=== PATIENT | male | born 1955 | race African-American/Black ===

== ENCOUNTER 2020-02-23 15:59 | Emergency (ER) | payer MEDICARE, MEDICAID ==
--- NOTE | 2020-02-23 16:21 | ER Document Report ---
ED General - General Chief Complaint: Shortness Of Breath Stated Complaint: SHORTNESS OF BREATH Time Seen by Provider: 02/23/20 16:21 Primary Care Provider: RITA SILVER [NO LOCAL MD] - Follow up as needed - [facility] Notes: 64-year-old male presents with shortness of breath. Patient states about an hour prior to arrival, he was sitting on the couch when suddenly he became short of breath. He states that he has a history of [place] BENDER D. He tried his inhalers which did not provide relief. He states that this is never happened before. He denies recent illness, fever or chills. He denies chest pain. He does have HIV, reports compliance with his medication and that his counts are good. - Related Data Allergies/Adverse Reactions: blueberries Allergy (Uncoded 09/18/11 09:35) fish Allergy (Uncoded 09/18/11 09:35) Hives Past Medical History - General Information source: Patient - Social History Smoking Status: Unknown if Ever Smoked Family History: Reviewed & Not Pertinent - Past Medical History Cardiac Medical History: Reports: Hx Hypercholesterolemia, Hx Hypertension Pulmonary Medical History: Reports: Hx COPD, Hx Pneumonia - Immunizations Hx Diphtheria, Pertussis, Tetanus Vaccination: Yes Hx Pneumococcal Vaccination: 04/09/11 Review of Systems - Review of Systems Constitutional: denies: Fever EENT: No symptoms reported Cardiovascular: denies: Chest pain Respiratory: Short of breath Gastrointestinal: No symptoms reported Genitourinary: No symptoms reported Male Genitourinary: No symptoms reported Musculoskeletal: No symptoms reported Skin: No symptoms reported Hematologic/Lymphatic: No symptoms reported Neurological/Psychological: No symptoms reported Physical Exam - Vital signs Vitals: Temp 97.8 F 02/23/20 16:00 Interpretation: Tachycardic, Tachypneic - General General appearance: Alert In distress: Mild - HEENT Head: Normocephalic, Atraumatic Extraocular movements intact: Yes Pupils: PERRL - Respiratory Respiratory status: Tachypnea Breath sounds: Decreased air movement, Wheezing - Cardiovascular Rhythm: Tachycardia Heart sounds: Normal auscultation Pulses: Normal: Radial Normal capillary refill: Yes - Abdominal Tenderness: Nontender - Extremities General lower extremity: No: Edema - Neurological Neuro grossly intact: Yes Cognition: Normal Orientation: AAOx4 - Psychological Associated symptoms: Normal affect - Skin Skin Temperature: Warm Course - Re-evaluation Re-evalutation: 64-year-old male with onset of shortness of breath. On exam he does have decreased air movement, there is some wheezing at the upper aspect. Suspecting COPD exacerbation, will start with DuoNeb's, magnesium bolus, and Solu-Medrol. He is notably tachycardic, this could be from his respiratory status as well. Lower concern for infection at this time. 02/23/20 18:15 In to check on patient, he is receiving nebulizer treatments, he states he is feeling somewhat better. 02/23/20 19:38 Into reassess patient, he reports he is feeling much better, he is no longer short of breath. Lung sounds have improved. He does remain fairly tachycardic, have ordered fluids, suspect this is a side effect of the albuterol. However will obtain CTA to r/o PE/ He is on metoprolol, may need to give a dose if no improvement after fluids 02/23/20 22:07 CTA has resulted. Is negative for pulmonary embolism. It does show a 6 mm pu lmonary nodule, patient will need follow-up. Heart rate is now in 120s, which is an improvement from the 140s. We will give his home dose of metoprolol at this time. 02/23/20 23:17 Patient's heart rate has responded to intervention. He reports he is feeling great. I updated him on the pulmonary nodule and need for six-month follow-up. We will prescribe a short course of steroids. He has enough albuterol refill, discussed these with him. Return precautions were given, stable at time of yaniv betts. - Vital Signs Vital signs: Temp Pulse Resp BP Pulse Ox 98.5 F 146 H 17 137/79 H 96 02/24/20 00:00 02/23/20 16:04 02/24/20 00:00 02/24/20 00:00 02/24/20 00:00 - Laboratory Result Diagrams: 02/23/20 16:22 02/23/20 16:22 Laboratory results interpreted by me: 02/23/20 02/23/20 02/23/20 16:22 16:22 20:53 MCV 101 H MCH 36.2 H Sodium 136.1 L Chloride 97 L BUN 29 H Glucose 139 H Total Protein 8.5 H Urine Protein 30 H Urine Ketones TRACE H - EKG Interpretation by Me Additional EKG results interpreted by me: 02/24/20 03:52 EKG is interpreted by me, sinus tachycardia, no ST elevations Discharge - Discharge Clinical Impression: COPD exacerbation Condition: Stable Disposition: HOME, SELF-CARE Additional Instructions: Please begin course of steroids for COPD exacerbation. As discussed, you have a pulmonary nodule that is small, please have a repeat CT scan done in 6 months. Return to the emergency department for any worsening or concerning symptoms. Prescriptions: Prednisone [Deltasone 20 mg Tablet] 2 tab PO DAILY 5 Days #10 tablet Referrals: LOCALMD,NO [NO LOCAL MD] - Follow up as needed
[2020-02-23] MEDS ORDERED: IPRATROPIUM/ALBUTEROL 0.5-2.5 MG/3 ML AMPUL NEB ONE (16:25)
[2020-02-23] MEDS ORDERED: METHYLPREDNISOLONE INJ 125 MG/2 ML SDV IV ONE (16:25)
[2020-02-23 16:45] LABS: ABSOLUTE EOSINOPHILS # (AUTO) 0.1 10^3/uL (0.0-0.6); ABSOLUTE LYMPHOCYTES (AUTO) 1.9 10^3/uL (0.5-4.7); ABSOLUTE MONOCYTES (AUTO) 0.6 10^3/uL (0.1-1.4); ABSOLUTE NEUT (AUTO) 5.6 10^3/uL (1.7-8.2); BASOPHILS % (AUTO) 0.6 % (0-2); EOSINOPHILS % (AUTO) 0.8 % (0-6); HEMATOCRIT 46.9 % (37.9-51.0); HEMOGLOBIN 16.8 g/dL (13.5-17.0); LYMPHOCYTES % (AUTO) 23.3 % (13-45); MEAN CORPUSCULAR HEMOGLOBIN 36.2 pg (27.0-33.4); MEAN CORPUSCULAR HGB CONC 35.8 g/dL (32.0-36.0); MEAN CORPUSCULAR VOLUME 101 fl (80-97); PLATELET COUNT 235 10^3/uL (150-450); RED BLOOD COUNT 4.64 10^6/uL (4.35-5.55); RED CELL DISTRIBUTION WIDTH 12.7 % (11.5-14.0); SEGMENTED NEUTROPHILS % (AUTO) 68.3 % (42-78); TOTAL CELLS COUNTED % (AUTO) 100 %; WHITE BLOOD COUNT 8.2 10^3/uL (4.0-10.5)
--- NOTE | 2020-02-23 16:50 | RADIOLOGY REPORT (SQ) ---
EXAM DESCRIPTION: CHEST SINGLE VIEW IMAGES COMPLETED DATE/TIME: 02/23/2020 4:31 pm REASON FOR STUDY: SOB COMPARISON: 09/18/2011 TECHNIQUE: Single frontal radiographic view of the chest acquired. NUMBER OF VIEWS: One view. LIMITATIONS: None. FINDINGS: LUNGS AND PLEURA: No pneumothorax. No consolidation or pleural effusion. MEDIASTINUM AND HILAR STRUCTURES: Stable. HEART AND VASCULAR STRUCTURES: Stable. BONES: No acute findings. HARDWARE: None in the chest. OTHER: No other significant finding. IMPRESSION: NO ACUTE FINDINGS. TECHNICAL DOCUMENTATION: JOB ID: [id number] [place]-72 2010 [employer]- All Rights Reserved Reading location - IP/workstation name: [employer]
[2020-02-23 17:04] LABS: ALBUMIN 4.7 g/dL (3.5-5.0); ALKALINE PHOSPHATASE 114 U/L (38-126); ANION GAP 13 (5-19); ASPARTATE AMINO TRANSFERASE 45 U/L (17-59); BILIRUBIN,DIRECT 0.1 mg/dL (0.0-0.4); BILIRUBIN,TOTAL 0.6 mg/dL (0.2-1.3); BLOOD UREA NITROGEN 29 mg/dL (7-20); CALCIUM 9.6 mg/dL (8.4-10.2); CARBON DIOXIDE 26 mmol/L (22-30); CHLORIDE 97 mmol/L (98-107); GLUCOSE 139 mg/dL (75-110); POTASSIUM 3.7 mmol/L (3.6-5.0); TOTAL PROTEIN 8.5 g/dL (6.3-8.2)
[2020-02-23] MEDS: MAGNESIUM SULFATE/D5W 1 GM/100 ML RTUPB IV SCH ×2 (17:46→17:58)
[2020-02-23] MEDS ORDERED: RINGERS SOLUTION,LACTATED 1,000 ML IV ONE (18:59)
--- NOTE | 2020-02-23 20:12 | EKG REPORT ---
SEVERITY:- OTHERWISE NORMAL ECG - SINUS TACHYCARDIA LOW VOLTAGE IN FRONTAL LEADS : Confirmed by: Mitch Christianson MD 23-Feb-2020 20:12:02
[2020-02-23 21:34] LABS: APPEARANCE,URINE SLIGHTLY-CLOUDY; BILIRUBIN,URINE NEGATIVE (NEGATIVE); COLOR,URINE YELLOW; GLUCOSE, URINE NEGATIVE (NEGATIVE); KETONES,URINE TRACE mg/dL (NEGATIVE); LEUKOCYTE ESTERASE,URINE NEGATIVE (NEGATIVE); NITRITE,URINE NEGATIVE (NEGATIVE); PROTEIN,URINE 30 mg/dL (NEGATIVE); URINE SPECIFIC GRAVITY 1.027; UROBILINOGEN,URINE NEGATIVE mg/dL (<2.0)
--- NOTE | 2020-02-23 21:42 | RADIOLOGY REPORT (SQ) ---
EXAM DESCRIPTION: CT CHEST ANGIOGRAPHY WITHOUT THEN WITH IV CONTRAST COMPLETED DATE/TME: 02/23/2020 19:38 CLINICAL HISTORY: 64 years, Male, tachy, SOB, eval PE COMPARISON: None. TECHNIQUE: Contrast enhanced CT of the chest was acquired. Images were obtained after the administration of 55 mL of Omnipaque 350 intravenous contrast. MIPS were created. Images stored on PACS. All CT scanners at this facility use dose modulation, iterative reconstruction, and/or weight based dosing when appropriate to reduce radiation dose to as low as reasonably achievable (ALARA). [facility]: Dose Right [facility]: CareDose [facility]: Dose Right [facility]: Teradose 4D [facility]: BioPetroClean LIMITATIONS: None. FINDINGS: Central airways are patent. Lung windows show severe emphysematous change. Visualized is a solid 6 mm nodule within the left lower lobe on image 103 of series 4. No suspicious features. Lungs are otherwise clear. Mediastinal windows show no significant hilar or mediastinal lymph node enlargement. Minimal calcifications are noted about the coronary vessels and thoracic aorta. Study is somewhat limited for the evaluation of pulmonary emboli secondary to motion artifact. No filling defects are identified to the proximal segmental level. Limited evaluation of the upper abdomen reveals diverticulosis. Bone windows show no destructive osseous lesions. IMPRESSION: No evidence of pulmonary embolism or other acute abnormality within the chest. 6.0 mm solid pulmonary nodule. Recommend a non-contrast Chest CT at 6-12 months, then another non-contrast Chest CT at 18-24 months. These guidelines do not apply to immunocompromised patients and patients with cancer. Follow up in patients with significant comorbidities as clinically warranted. For lung cancer screening, adhere to Lung-RADS guidelines. Reference: Radiology. 2017; 284(1):228-43. TECHNICAL DOCUMENTATION: Quality ID # 436: Final reports with documentation of one or more dose reduction techniques (e.g., Automated exposure control, adjustment of the mA and/or kV according to patient size, use of iterative reconstruction technique) copyright 2011 [employer]- All Rights Reserved
[2020-02-23] MEDS ORDERED: METOPROLOL TARTRATE 50 MG TABLET PO ONE (22:07)
[2020-02-24 00:04] VITALS: BP 137/79
== END 2020-02-24 00:20 | disposition home or self-care (01) ==
LOC: ER 15:59
DX: J44.1 Chronic obstructive pulmonary disease with (acute) exacerbation (principal); R06.02 Shortness of breath; Z88.8 Allergy status to other drugs, medicaments and biological substances; I10 Essential (primary) hypertension
CPT/HCPCS: 93005; 94640; 99285; 96361; 96375; 96365; 36415; 85025; 80053; 81001; 71045; 71275; 93010; J2930; A9270; J3475; J7120